=== PATIENT | male | born 1965 | race African-American/Black ===

== ENCOUNTER 2021-10-18 15:06 | Emergency (ER) | payer MEDICAID, SELFPAY ==
[2021-10-18 16:08] VITALS: BP 137/86; PULSE 91; RESP 18; TEMP 36.7; O2SAT 99
[2021-10-18 16:18] LABS: Glucose Point of Care 493 mg/dl (65-105)
[2021-10-18 17:17] LABS: Basophils Absolute Auto 0.1 K/mm3 (0.0-0.1); Basophils Percent Auto 1.1 % (0.2-1.2); Eosinophils Absolute Auto 0.1 K/mm3 (0-0.3); Eosinophils Percent Auto 1.6 % (0-4.4); Hematocrit 41.1 % (42.0-52.0); Hemoglobin 14.9 g/dL (14.0-18.0); Immature Granulocyte Absolute 0.02 K/mm3 (0.00-0.031); Immature Granulocyte Percent A 0.3 % (0-0.5); Lymphocytes Percent Auto 33.7 % (18.3-44.2); Mean Corpuscular HGB Conc 36.3 g/dl (32-36); Mean Corpuscular Volume 91.1 fl (80-100); Mean Platelet Volume 10.3 fl (7.4-10.4); Monocytes Absolute Auto 0.6 K/mm3 (0.1-0.6); Monocytes Percent Auto 10.3 % (2.6-8.5); Neutrophils Absolute Auto 3.3 K/mm3 (1.3-6.7); Platelet Count Result 214 k/mm3 (150-375); Red Blood Count 4.51 M/mm3 (4.6-6.20); Red Cell Distribution Width 13.4 % (11.5-14.5); White Blood Count 6.2 K/mm3 (4.5-10.0)
[2021-10-18 17:27] LABS: Anion Gap 11 mmol/L (8-16); Blood Urea Nitrogen 18 mg/dL (9-20); Calcium 9.7 mg/dL (8.4-10.2); Carbon Dioxide 23 mmol/L (22-30); Chloride 95 mmol/L (98-107); Estimated CRCL calculation 72 ml/min; Estimated Glomerular Filt Rate > 60; Glucose 464 mg/dL (65-110); Potassium 4.8 mmol/L (3.4-5.0); Sodium 129 mmol/L (137-145)
--- NOTE | 2021-10-18 17:35 | ED.GENADULT ---
HPI - General Adult General Chief complaint: Recheck/Abnormal Lab/Rx Stated complaint: high blood sugar Time Seen by Provider: 10/18/21 17:34 Source: patient Mode of arrival: ambulatory Limitations: no limitations History of Present Illness HPI narrative: Patient is a 56 y/o male who presents to the ED with c/o elevated blood glucose. Patient reports a history of diabetes type 2 for which he used to take Lantus and Glipizide. He states he lost his insurance 6 months ago and has been buying generic Lantus on the streets. He has not been taking the glipizide. He states he went to see Dr. Davidson this morning as a new patient and his blood glucose was greater than 500 in the office. He was then referred to the ED for further evaluation. Patient states he has been feeling somewhat fatigued lately with polyuria and polydipsia, but denies any nausea, vomiting, abdominal pain, headaches, weakness, chest pain, shortness of breath, fevers. He does report recent blurry vision due to his diabetic retinopathy, but has been seeing an school childcare attendant for this and has an appointment again next month. Related Data Allergies Allergy/AdvReac Type Severity Reaction Status Date / Time No Known Allergies Allergy Verified 10/18/21 18:34 Review of Systems Review of Systems: CONSTITUTIONAL: Reports fatigue. Denies fever, chills, or sweats. EYES: Reports blurry vision. ENT: Reports polydipsia. Denies rhinorrhea, congestion, sore throat. CARDIOVASCULAR: Denies chest pain. RESPIRATORY: Denies dyspnea. GASTROINTESTINAL: Denies abdominal pain, nausea, vomiting, or diarrhea. GENITOURINARY: Reports polyuria. Denies dysuria or hematuria. NEUROLOGIC: Denies headache or weakness. All systems reviewed & are unremarkable except as noted in HPI and below PMFSH Past Medical History Medical History (Updated 10/18/21 @ 20:17 by Rere Lombardo PA-C) CAD (coronary artery disease) Diabetes mellitus Diabetic retinopathy Hyperlipidemia Hypertension Peripheral neuropathy Surgical History Surgical History (Updated 10/18/21 @ 18:04 by Rere Lombardo PA-C) History of coronary artery stent placement Social History Social History (Updated 10/18/21 @ 18:04 by Rere Lombardo PA-C) Smoking status: Former smoker Exam Narrative: GENERAL: Well appearing, obese, non-toxic, in no acute distress. HEAD: Normocephalic, atraumatic. EYES: PERRL/EOMI, conjunctivae clear bilaterally. NECK: Supple. No adenopathy, no masses. RESPIRATORY: Airway patent, respirations nonlabored. Clear to auscultation bilaterally, no rales, rhonchi, wheezing. CARDIOVASCULAR: Regular rate and rhythm without murmurs, rubs, or gallops. Peripheral pulses 2+ and equal bilaterally. ABDOMINAL: Soft, nontender, nondistended, no hepatosplenomegaly. Normoactive BS. MUSCULOSKELETAL: Moves all extremities. Strength/ROM intact without gross deformities or TTP. No edema. SKIN: Warm, dry, normal color. No rashes. NEURO: A&O X3. Speech clear. Cranial nerves II-XII grossly intact. Steady gait. No ataxic movements. PSYCHIATRIC: Appropriate mood and affect. Normal interaction. Course Consultations Consultation #1: Discussed case with Dr. Davidson, PCP, recommended lisinopril 5 mg daily, metformin 500 mg twice daily, Lantus 10 units daily. Advised to have patient be seen in the office tomorrow. Date: 10/18/21 Vital Signs Vital signs: Vital Signs Temperature 98.1 F 10/18/21 16:08 Pulse Rate 91 10/18/21 16:08 Respiratory Rate 18 10/18/21 16:08 Blood Pressure 137/86 10/18/21 16:08 Pulse Oximetry 99 10/18/21 16:08 Oxygen Delivery Room Air 10/18/21 16:08 Temperature 98.1 F 10/18/21 16:08 Pulse Rate 91 10/18/21 16:08 Respiratory Rate 18 10/18/21 16:08 Blood Pressure 137/86 10/18/21 16:08 Pulse Oximetry 99 10/18/21 16:08 Oxygen Delivery Room Air 10/18/21 16:08 Medical Decision Making MDM Narrative Medical decision making narrative: No s
[2021-10-18 17:37] LABS: Glucose Point of Care 438 mg/dl (65-105)
[2021-10-18] MEDS: SODIUM CHLORIDE 0.9% IV 1,000 ML 999 ML IV CONT ×2 (18:40→19:29)
[2021-10-18 18:49] LABS: Beta-Hydroxybutyrate/Acetoacetate 0.16 mmol/L (0.02-0.27)
[2021-10-18 19:14] LABS: Hemoglobin A1C > 14.0 % (<5.7)
[2021-10-18 19:41] LABS: Appearance Urine Clear (Clear); Bilirubin Urine Negative (Negative); Blood Urine 1+ (Negative); Color Urine Yellow (Yellow); Glucose Urine UA 3+ mg/dL (Negative); Ketones Urine Trace mg/dL (Negative); Leukocyte Esterase Ur Negative LEU/UL (Negative); Nitrate Urine Negative (Negative); Protein Urine 1+ mg/dL (Negative); Specific Grav Ur 1.015 (1.001-1.035); Urobilinogen Urine 0.2 mg/dL (<2.0)
[2021-10-18 19:50] LABS: RBC Urine 0-2 /hpf (0-2); WBC Urine 0-3 /hpf
[2021-10-18 19:51] LABS: Add Urine Microscopic? YES
[2021-10-18 20:01] LABS: Glucose Point of Care 388 mg/dl (65-105)
[2021-10-18] MEDS: INSULIN GLARGINE (*BKC) 100 UNITS/ML 10 UNITS SUB-Q (20:28)
[2021-10-18 20:29] VITALS: BP 191/109; PULSE 74; RESP 16; TEMP 36.3; O2SAT 98
[2021-10-18] MEDS: metFORMIN HCL 500 MG TABLET PO (20:31)
== END 2021-10-18 20:32 | disposition home or self-care (01) ==
PROVIDERS: Emergency Medicine; Physician Assistant; Emergency Provider Emergency Medicine; PCP Emergency Medicine
DX: E11.65 Type 2 diabetes mellitus with hyperglycemia (principal); Z79.84 Long term (current) use of oral hypoglycemic drugs; I25.10 Atherosclerotic heart disease of native coronary artery without angina pectoris; I10 Essential (primary) hypertension; E78.5 Hyperlipidemia, unspecified
CPT/HCPCS: 36415; 80048; 81001; 82010; 82948; 83036; 85025; 96360; 99283; A9270; J1815; J7030